=== PATIENT | male | born 1950 | race Caucasian/White ===

== ENCOUNTER 2023-11-30 10:47 | Inpatient (IN) | payer OTHER, MEDICARE ==
[~2023-11-30] VITALS: Ht 177.8 cm; Wt 116.0 kg
[2023-11-30 11:05] LABS: BASOPHILS # (AUTO) 0.1 X10'3 (0-0.2); BASOPHILS % (AUTO) 0.8 % (0-1); EOSINOPHILS # (AUTO) 0.2 X10'3 (0-0.9); EOSINOPHILS % (AUTO) 1.8 % (0-6); HEMATOCRIT 50.4 % (42.0-52.0); LYMPHOCYTES # (AUTO) 2.4 X10'3 (1.1-4.8); LYMPHOCYTES % (AUTO) 28.1 % (21-51); MEAN CORPUSCULAR HEMOGLOBIN 31.8 PG (27.0-31.0); MEAN CORPUSCULAR HGB CONC 33.6 g/dL (33.0-36.5); MEAN CORPUSCULAR VOLUME 94.6 FL (78-98); MEAN PLATELET VOLUME 7.1 FL (7.4-10.4); MONOCYTES # (AUTO) 0.9 X10'3 (0-0.9); MONOCYTES % (AUTO) 10.7 % (2-12); NEUTROPHILS # (AUTO) 5.1 X10'3 (1.8-7.7); NEUTROPHILS % (AUTO) 58.6 % (42-75); PLATELET COUNT 239 X10'3 (140-440); RED BLOOD COUNT 5.33 X10'6 (4.70-6.10); RED CELL DISTRIBUTION WIDTH 13.8 % (11.5-14.5); WHITE BLOOD COUNT 8.7 X10'3 (4.5-11.0)
[2023-11-30 11:27] LABS: ALBUMIN 3.5 G/DL (3.4-5.0); ANION GAP 10 (8-16); BLOOD UREA NITROGEN 14 MG/DL (7-18); BUN/CREATININE RATIO 12.7 (10.0-20.0); CALCIUM 8.7 MG/DL (8.5-10.1); CHLORIDE 107 MMOL/L (99-107); GLUCOSE 108 MG/DL (70-104); POTASSIUM 4.7 MMOL/L (3.5-5.1); PRO BRAIN NATRIURETIC PEPTIDE 1367 PG/ML (0-450); SODIUM 143 MMOL/L (135-145); TOTAL CARBON DIOXIDE 26.5 MMOL/L (24-32); eCRCL 60 ML/MIN; eGFR 65 ML/MIN
[2023-11-30 11:48] LABS: D-DIMER 0.26 MG/L FEU (0-0.50)
[2023-11-30] MEDS: nitroGLYCERIN 0.4mg/hour patch TD ONE (12:03)
[2023-11-30] MEDS: furosemide 10 MG/1 ML 10ml inj IV ONE (12:04)
[2023-11-30] MEDS ORDERED: magnesium 2GM in 50ml NS 50 ML IV PRN (12:45)
[2023-11-30] MEDS ORDERED: potassium Cl 40MEQ/1/2NS 520ml 520 ML IV PRN (12:45)
[2023-11-30] MEDS ORDERED: HYDROcodone/acetaminophen 5mg/325mg tablet PO PRN (12:45)
[2023-11-30] MEDS ORDERED: magnesium Cl slow-release 64mg tablet PO PRN (12:45)
[2023-11-30] MEDS ORDERED: magnesium 4gm in 100ml NS 100 ML IV PRN (12:45)
[2023-11-30] MEDS ORDERED: potassium Cl 20 mEq SR tablet PO PRN ×2 (12:45)
[2023-11-30] MEDS ORDERED: acetaminophen 325mg tablet PO PRN (12:45)
[2023-11-30] MEDS ORDERED: morphine 2 MG/ML inj. syringe IV PRN (12:45)
[2023-11-30] MEDS ORDERED: ondansetron/PF 4mg/2ml inj IV PRN (12:45)
[2023-11-30] MEDS: normal saline 1000ml 1,000 ML IV SCH (12:52)
[2023-11-30] MEDS ORDERED: METO-395 PO (15:18)
[2023-11-30] MEDS ORDERED: DABI150C PO (15:18)
[2023-11-30] MEDS ORDERED: ATOR10TA PO (15:18)
[2023-11-30] MEDS ORDERED: HYDR-3973 PO (15:19)
[2023-11-30 15:30] VITALS: PULSE 98; RESP 16; O2SAT 94
[2023-11-30 16:02] VITALS: BP 128/90; PULSE 110; RESP 10; TEMP 97.8; O2SAT 92
[2023-11-30] MEDS: acetaminophen 325mg tablet PO PRN (17:19)
[2023-11-30 17:28] VITALS: RESP 19; O2SAT 92
[2023-11-30 18:00] VITALS: BP 113/71; PULSE 68; RESP 18; TEMP 98.1; O2SAT 96
[2023-11-30] MEDS: enoxaparin 40mg/0.4ml syringe SQ SCH (19:33)
[2023-11-30] MEDS: furosemide 20 MG/2 ML vial IV SCH (19:34)
[2023-11-30] MEDS: morphine 2 MG/ML inj. syringe IV PRN (19:41)
[2023-11-30 22:00] VITALS: BP 112/76; PULSE 113; RESP 22; TEMP 97.3; O2SAT 92
[2023-11-30] MEDS: HYDROcodone/acetaminophen 10/325mg tab PO PRN (22:07)
[2023-11-30 22:51] VITALS: PULSE 100; RESP 13; O2SAT 97
[2023-12-01] VITALS (28 sets, daily range): BP systolic 106–144; BP diastolic 73–103; PULSE 84–142; RESP 12–29; TEMP 97–98; O2SAT 93–99
[2023-12-01 07:56] LABS: BASOPHILS # (AUTO) 0.1 X10'3 (0-0.2); BASOPHILS % (AUTO) 0.5 % (0-1); EOSINOPHILS # (AUTO) 0.2 X10'3 (0-0.9); EOSINOPHILS % (AUTO) 1.5 % (0-6); HEMATOCRIT 51.9 % (42.0-52.0); HEMOGLOBIN 17.5 g/dl (14.0-17.9); LYMPHOCYTES # (AUTO) 2.2 X10'3 (1.1-4.8); LYMPHOCYTES % (AUTO) 19.9 % (21-51); MEAN CORPUSCULAR HEMOGLOBIN 31.6 PG (27.0-31.0); MEAN CORPUSCULAR HGB CONC 33.7 g/dL (33.0-36.5); MEAN CORPUSCULAR VOLUME 93.8 FL (78-98); MEAN PLATELET VOLUME 7.4 FL (7.4-10.4); MONOCYTES # (AUTO) 1.2 X10'3 (0-0.9); MONOCYTES % (AUTO) 10.4 % (2-12); NEUTROPHILS # (AUTO) 7.5 X10'3 (1.8-7.7); NEUTROPHILS % (AUTO) 67.7 % (42-75); PLATELET COUNT 216 X10'3 (140-440); RED BLOOD COUNT 5.53 X10'6 (4.70-6.10); RED CELL DISTRIBUTION WIDTH 13.7 % (11.5-14.5)
[2023-12-01 08:47] LABS: ALANINE AMINOTRANSFERASE 30 U/L (12-78); ALBUMIN 3.6 G/DL (3.4-5.0); ALBUMIN/GLOBULIN RATIO 0.9 (1.1-1.5); ALKALINE PHOSPHATASE 58 IU/L (46-116); ANION GAP 15 (8-16); ASPARTATE AMINO TRANSFERASE 34 U/L (10-37); BILIRUBIN,TOTAL 1.5 MG/DL (0.1-1.0); BLOOD UREA NITROGEN 15 MG/DL (7-18); BUN/CREATININE RATIO 14.6 (10.0-20.0); CALCIUM 8.9 MG/DL (8.5-10.1); CHLORIDE 103 MMOL/L (99-107); CREATININE 1.03 MG/DL (0.60-1.10); GLUCOSE 103 MG/DL (70-104); POTASSIUM 4.1 MMOL/L (3.5-5.1); SODIUM 140 MMOL/L (135-145); TOTAL CARBON DIOXIDE 22.3 MMOL/L (24-32); TOTAL PROTEIN 7.8 G/DL (6.4-8.2); eCRCL 64 ML/MIN; eGFR 70 ML/MIN
[2023-12-01] MEDS ORDERED: aminophylline inj. 10 ML IV ONE (08:59)
[2023-12-01] MEDS: regadenoson 0.4mg/5ml syringe IV ONE (09:03)
[2023-12-01] MEDS: aminophylline 250mg/10ml inj. IV ONE (09:20)
[2023-12-01] MEDS: aminophylline 500mg/20ml vial IV ONE (09:24)
[2023-12-01] MEDS: normal saline 1000ml 1,000 ML IV SCH (10:49)
[2023-12-01] MEDS: metoprolol tartrate 25mg tablet PO ONE (12:49)
[2023-12-01] MEDS: ipratropium/albuterol 3ml nebule NEB PRN (14:47)
[2023-12-01] MEDS: dabigatran 150mg capsule PO SCH (19:45)
[2023-12-01] MEDS: metoprolol succinate 25mg (24-HOUR) SR. Tablet PO SCH ×2 (19:46→19:54)
[2023-12-01] MEDS ORDERED: metoprolol succinate 25mg (24-HOUR) SR. Tablet PO SCH (20:00)
[2023-12-01] MEDS: albuterol 2.5 MG/3 ML nebule NEB PRN (20:16)
[2023-12-02] VITALS (11 sets, daily range): BP systolic 98–136; BP diastolic 74–88; PULSE 98–124; RESP 16–30; TEMP 98–98.7; O2SAT 91–98
[2023-12-02 06:38] LABS: BASOPHILS % (AUTO) 0.4 % (0-1); EOSINOPHILS # (AUTO) 0.1 X10'3 (0-0.9); EOSINOPHILS % (AUTO) 0.8 % (0-6); HEMATOCRIT 50.4 % (42.0-52.0); HEMOGLOBIN 17.3 g/dl (14.0-17.9); LYMPHOCYTES # (AUTO) 1.5 X10'3 (1.1-4.8); LYMPHOCYTES % (AUTO) 17.3 % (21-51); MEAN CORPUSCULAR HEMOGLOBIN 32.1 PG (27.0-31.0); MEAN CORPUSCULAR HGB CONC 34.3 g/dL (33.0-36.5); MEAN CORPUSCULAR VOLUME 93.7 FL (78-98); MEAN PLATELET VOLUME 7.6 FL (7.4-10.4); MONOCYTES # (AUTO) 1.2 X10'3 (0-0.9); MONOCYTES % (AUTO) 14.2 % (2-12); NEUTROPHILS # (AUTO) 5.9 X10'3 (1.8-7.7); NEUTROPHILS % (AUTO) 67.3 % (42-75); PLATELET COUNT 209 X10'3 (140-440); RED BLOOD COUNT 5.38 X10'6 (4.70-6.10); RED CELL DISTRIBUTION WIDTH 13.9 % (11.5-14.5); WHITE BLOOD COUNT 8.7 X10'3 (4.5-11.0)
[2023-12-02 07:04] LABS: ALANINE AMINOTRANSFERASE 32 U/L (12-78); ALBUMIN 3.4 G/DL (3.4-5.0); ALBUMIN/GLOBULIN RATIO 0.8 (1.1-1.5); ALKALINE PHOSPHATASE 53 IU/L (46-116); ANION GAP 9 (8-16); ASPARTATE AMINO TRANSFERASE 43 U/L (10-37); BILIRUBIN,TOTAL 1.3 MG/DL (0.1-1.0); BLOOD UREA NITROGEN 13 MG/DL (7-18); BUN/CREATININE RATIO 10.7 (10.0-20.0); CALCIUM 8.9 MG/DL (8.5-10.1); CHLORIDE 102 MMOL/L (99-107); CREATININE 1.21 MG/DL (0.60-1.10); GLUCOSE 109 MG/DL (70-104); POTASSIUM 4.2 MMOL/L (3.5-5.1); SODIUM 139 MMOL/L (135-145); TOTAL CARBON DIOXIDE 27.8 MMOL/L (24-32); TOTAL PROTEIN 7.5 G/DL (6.4-8.2); eCRCL 54 ML/MIN; eGFR 58 ML/MIN
[2023-12-02] MEDS: atorvastatin 10mg tablet PO SCH (08:50)
[2023-12-02] MEDS ORDERED: METO100T7 PO (15:52)
[2023-12-03] VITALS (7 sets, daily range): BP systolic 105–130; BP diastolic 67–84; PULSE 85–110; RESP 16–23; TEMP 97.2–98.6; O2SAT 90–96
[2023-12-03 08:39] LABS: BASOPHILS # (AUTO) 0.1 X10'3 (0-0.2); BASOPHILS % (AUTO) 0.6 % (0-1); EOSINOPHILS # (AUTO) 0.1 X10'3 (0-0.9); LYMPHOCYTES # (AUTO) 2.8 X10'3 (1.1-4.8); MEAN PLATELET VOLUME 7.5 FL (7.4-10.4); PLATELET COUNT 220 X10'3 (140-440)
[2023-12-03 08:41] LABS: EOSINOPHILS % (AUTO) 1.3 % (0-6); HEMATOCRIT 53.6 % (42.0-52.0); MEAN CORPUSCULAR VOLUME 94.1 FL (78-98); NEUTROPHILS # (AUTO) 4.6 X10'3 (1.8-7.7); NEUTROPHILS % (AUTO) 48.1 % (42-75); RED CELL DISTRIBUTION WIDTH 13.7 % (11.5-14.5); WHITE BLOOD COUNT 9.6 X10'3 (4.5-11.0)
[2023-12-03 08:50] LABS: HEMOGLOBIN 18.2 g/dl (14.0-17.9)
[2023-12-03 08:53] LABS: ALANINE AMINOTRANSFERASE 44 U/L (12-78); ALBUMIN 3.6 G/DL (3.4-5.0); ALBUMIN/GLOBULIN RATIO 0.8 (1.1-1.5); ALKALINE PHOSPHATASE 58 IU/L (46-116); ANION GAP 7 (8-16); ASPARTATE AMINO TRANSFERASE 61 U/L (10-37); BILIRUBIN,TOTAL 1.1 MG/DL (0.1-1.0); BLOOD UREA NITROGEN 16 MG/DL (7-18); BUN/CREATININE RATIO 12.5 (10.0-20.0); CALCIUM 9.1 MG/DL (8.5-10.1); CHLORIDE 100 MMOL/L (99-107); CREATININE 1.28 MG/DL (0.60-1.10); GLUCOSE 96 MG/DL (70-104); SODIUM 137 MMOL/L (135-145); TOTAL CARBON DIOXIDE 29.9 MMOL/L (24-32); TOTAL PROTEIN 8.2 G/DL (6.4-8.2); eCRCL 51 ML/MIN; eGFR 55 ML/MIN
[2023-12-03 09:04] LABS: PLATELET ESTIMATE NORMAL; TOTAL CELLS COUNTED 100
== END 2023-12-03 12:40 | disposition home or self-care (01) | DRG 308 ==
LOC: ER 10:47 → ED HOLD 12:44 → UNDOADMIN 12:44 → ED HOLD 15:22 → PCU 3S 15:50
PROVIDERS: ADMIT Internal Medicine; ATTEND Internal Medicine
PROC: 4A02XM4 Measurement of Cardiac Total Activity, External Approach (ICD-10-PCS; principal; 2023-12-01)
PROC: 3E073KZ Introduction of Other Diagnostic Substance into Coronary Artery, Percutaneous Approach (ICD-10-PCS; 2023-12-01)
DX: I48.91 Unspecified atrial fibrillation (principal); I50.21 Acute systolic (congestive) heart failure; N17.9 Acute kidney failure, unspecified; G47.33 Obstructive sleep apnea (adult) (pediatric); J44.9 Chronic obstructive pulmonary disease, unspecified; G47.30 Sleep apnea, unspecified; G89.4 Chronic pain syndrome; E78.5 Hyperlipidemia, unspecified; I25.10 Atherosclerotic heart disease of native coronary artery without angina pectoris; Z99.81 Dependence on supplemental oxygen; Z79.899 Other long term (current) drug therapy; Z85.51 Personal history of malignant neoplasm of bladder; Z87.891 Personal history of nicotine dependence
CPT/HCPCS: 36415; 71045; 78452; 80048; 80053; 83880; 84484; 85007; 85025; 85379; 86140; 87081; 93005; 93017; 93306; 94640; 94660; 94760; 96374; 99285; A9500; G0378; J0280; J1650; J1940; J2270; J2785; J7030; J7040